=== PATIENT | female | born 1980 | race Caucasian/White ===

== ENCOUNTER 2024-12-10 21:53 | Inpatient (IN) | payer OTHER ==
[2024-12-10 22:31] VITALS: BMI 26.4
[2024-12-10] MEDS ORDERED: BENZONATATE 200 MG CAPSULE PO PRN (22:37)
[2024-12-10] MEDS ORDERED: ACETAMINOPHEN 325 MG TABLET (FP) PO PRN (22:37)
[2024-12-10] MEDS ORDERED: LOPERAMIDE HCL 2 MG CAPSULE PO PRN (22:37)
[2024-12-10] MEDS ORDERED: IBUPROFEN 400 MG TABLET (FP) PO PRN (22:37)
[2024-12-10] MEDS ORDERED: hydrOXYzine PAMOATE 25 MG CAPSULE (FP) PO PRN (22:37)
[2024-12-10] MEDS ORDERED: NALOXONE (NARCAN) HCL 4 MG/0.1 ML SPRAY NS PRN (22:37)
[2024-12-10] MEDS ORDERED: BENZOCAINE/MENTHOL (CHLORASEPTIC ) LOZENGE MM PRN (22:37)
[2024-12-10] MEDS ORDERED: MAGNESIUM HYDROX 2400MG/30ML ORAL SUSPENSION 30 ML CUP PO PRN (22:37)
[2024-12-10] MEDS ORDERED: guaiFENesin 600 MG TABLET.ER (FP) PO PRN (22:37)
[2024-12-10] MEDS ORDERED: POLYETHYLENE GLYCOL (HEALTHYLAX) 3350 17 GM PACKET PO PRN (22:37)
[2024-12-10] MEDS ORDERED: NALOXONE HCL 0.4 MG/ML VIAL IVPUSH PRN (22:37)
[2024-12-10] MEDS ORDERED: MAG HYDROX/AL HYDROX/SIMETH 30 ML UNIT-DOSE CUP PO PRN (22:37)
[2024-12-11 00:06] VITALS: RESP 16
[2024-12-11] MEDS: traZODone HCL 50 MG TABLET (FP) PO ONE (01:29)
[2024-12-11] MEDS: MELATONIN 5 MG TABLETS PO SCH (01:31)
[2024-12-11] MEDS ORDERED: ALBUTEROL SO4 HFA INHALER IH PRN (01:33)
[2024-12-11] MEDS: PRENATAL VITAMINS W/ FOLIC ACID TABLET (FP) PO SCH (09:59)
[2024-12-11] MEDS: NICOTINE 14 MG/24 HOURS TOPICAL PATCH TD SCH (09:59)
[2024-12-11] MEDS: BUDESONIDE/FORMETEROL FUMARATE 160/4.5 mcg INHALER IH SCH (10:35)
[2024-12-11] MEDS: IBUPROFEN 600 MG TABLET (FP) PO PRN (16:14)
[2024-12-11] MEDS: NICOTINE POLACRILEX 2 MG GUM BUC PRN (18:15)
[2024-12-11] MEDS: METHOCARBAMOL 500 MG TABLET PO PRN (18:21)
[2024-12-11] MEDS: traZODone HCL 50 MG TABLET (FP) PO SCH (23:08)
[2024-12-11] MEDS: THIAMINE 100 MG TABLET PO SCH (23:08)
[2024-12-12 09:06] VITALS: BP 125/91; PULSE 84; TEMP 97.5
[2024-12-12] MEDS: SPIRONOLACTONE 25 MG TABLET PO SCH (12:00)
[2024-12-12] MEDS: EMPAGLIFLOZIN (JARDIANCE) 10 MG TABLET PO SCH (12:00)
[2024-12-12] MEDS: ASCORBIC ACID 500 MG TABLET (FP) PO SCH (12:00)
[2024-12-12] MEDS: SACUBITRIL/VALSARTAN 24 MG-26 MG TABLET PO SCH (12:00)
[2024-12-12] MEDS: FOLIC ACID 1 MG TABLET (FP) PO SCH (12:00)
[2024-12-12] MEDS: BUMETANIDE 1 MG TABLET PO SCH (12:00)
[2024-12-12] MEDS: PANTOPRAZOLE 40 MG TABLET PO SCH (12:00)
[2024-12-12] MEDS: FLU VACCINE (FLULAVAL) PF 45 MCG/0.5 ML SYRINGE 2024-2025 IM ONE (12:00)
[2024-12-12] MEDS ORDERED: GABAPENTIN 300 MG CAPSULE PO SCH (14:00)
== END 2024-12-12 12:30 | disposition home or self-care (01) | DRG 772 ==
LOC: YASAS 21:53 → Y3NR 23:51
PROVIDERS: ADMIT Psychiatry & Neurology Pain Medicine; ATTEND Psychiatry & Neurology Pain Medicine
PROC: HZ42ZZZ Group Counseling for Substance Abuse Treatment, Cognitive-Behavioral (ICD-10-PCS; principal; 2024-12-10)
DX: F10.20 Alcohol dependence, uncomplicated (principal); F17.210 Nicotine dependence, cigarettes, uncomplicated; F32.A Depression, unspecified; I11.0 Hypertensive heart disease with heart failure; I50.9 Heart failure, unspecified; Z62.810 Personal history of physical and sexual abuse in childhood; Z63.8 Other specified problems related to primary support group; Z85.3 Personal history of malignant neoplasm of breast; Z56.0 Unemployment, unspecified; Z59.00 Homelessness unspecified
CPT/HCPCS: 80305; 80307; 87811